=== PATIENT | male | born 1970 | race Two or more races ===

== ENCOUNTER 2018-07-08 07:59 | Day surgery (SDC) | payer OTHER ==
[~2018-07-08 07:59] MED LIST: AMBIEN10 MG PO; ASA81 MG PO; COZAAR100 MG PO; DEPAKOTE ER500 MG PO; FOLIC ACID1 MG PO; GABAPENTIN800 MG PO; LYRICA100 MG PO; PERCOCET 5-3251 EACH PO; XANAX XR2 MG PO
[2018-07-08] MEDS ORDERED: ALEVE220 M1 PO (09:12)
[2018-07-08] MEDS ORDERED: CIPRO500 MG PO (09:12)
[2018-07-08] MEDS ORDERED: PERCOCET 5-3251 EACH PO (09:12)
== END 2018-07-08 11:25 | disposition home or self-care (01) ==
LOC: CIR.AMB 07:59
DX: S46.011A Strain of muscle(s) and tendon(s) of the rotator cuff of right shoulder, initial encounter (principal); M75.121 Complete rotator cuff tear or rupture of right shoulder, not specified as traumatic; M19.011 Primary osteoarthritis, right shoulder; M65.811 Other synovitis and tenosynovitis, right shoulder